=== PATIENT | female | born 1940 | race Caucasian/White ===

== ENCOUNTER 2022-04-02 09:51 | Emergency (ER) | payer MEDICARE, SELFPAY ==
[2022-04-02 10:07] VITALS: BP 145/75; PULSE 86; RESP 18; TEMP 36; O2SAT 97; BMI 30.5
--- NOTE | 2022-04-02 10:17 | CRLHL7_ITS ---
For Patients: As a result of the Century Cures Act, medical imaging exams and procedure reports are released immediately into your electronic medical record. You may view this report before your referring provider. If you have questions, please contact your health care provider. Indication: Trauma Technique: A total of three views of the left foot were acquired. Comparison: None Findings: Bones: Demineralization. Moderate irregularity of the cuboid. This is probably remote posttraumatic or congenital. Correlate with point tenderness in this area (lateral midfoot just proximal to the base of the left 5th metatarsal). 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 Soft tissues: Unremarkable. Impression: Demineralization and degenerative change. Moderate irregularity of the cuboid. This is probably remote posttraumatic or congenital. Correlate with point tenderness in this area as described in the body of the report. Dictated by Raymundo Fernandez MD @ 04/02/2022 11:08:15 AM (Electronically Signed)
--- NOTE | 2022-04-02 10:17 | CRLHL7_ITS ---
For Patients: As a result of the Century Cures Act, medical imaging exams and procedure reports are released immediately into your electronic medical record. You may view this report before your referring provider. If you have questions, please contact your health care provider. Indication: Trauma Technique: A total of two views of the left knee were acquired. Comparison: April 03, 2020 Findings: Bones: Alignment is normal. No fractures or bone lesions. Demineralization. Joint spaces: Minor degenerative changes. Soft tissues: Small effusion Impression: Demineralization. Minor degenerative changes. Small effusion. No visible acute fracture, dislocation or destructive process. Dictated by Raymundo Fernandez MD @ 04/02/2022 11:00:16 AM (Electronically Signed)
--- NOTE | 2022-04-02 10:18 | ED.GENADULT ---
HPI - General Adult General Time Seen by Provider: 10:19 Date Seen: 04/02/22 Chief complaint: Extremity Pain/Injury, Lower Stated complaint: fell, hurt left leg Time Seen by Provider: 04/02/22 09:54 Source: patient Mode of arrival: ambulatory Limitations: physical limitation History of Present Illness HPI narrative: Patient is a 81-year-old female who fell on Thursday, she injured her left foot and her left knee. She has no other problems, no other injuries, she simply fell into a furniture implement. She denied dizziness chest pain breathing problem neurologic complaint. Patient reports that her knee ?popped? yesterday when going up stairs and she has had increasing pain since. She knows little redness on the dorsum of her foot on the left. No head neck back pelvis pain. Related Data Home Medications Medication Instructions Recorded Confirmed levothyroxine 75 mcg tablet See Rx Instructions .Route .COMPLEX 04/02/22 04/02/22 Allergies Allergy/AdvReac Type Severity Reaction Status Date / Time No Known Drug Allergies Allergy Verified 04/02/22 10:12 Review of Systems Status of ROS: Reports: 6 or more systems reviewed and unremarkable except as noted in History and below PFSH PFS Social History Smoking Status: Former smoker What tobacco products do you use: cigarettes Do you use any of these nicotine containing products: None Second hand tobacco smoke exposure: No How often do you have a drink containing alcohol: never How often do you have six or more drinks on one occasion: Never AUDIT-C Alcohol total score: 0 Non-prescribed substance use: denies use Exam Narrative: Exam Narrative: Objective: In general patient apparent distress Alert or x3 Denies head or neck pain, no back pain Lower extremity on the left shows fairly full range of motion left knee, no effusion, no medial lateral joint line tenderness. She does report pain with full flexion extension Left foot shows some tenderness over the distal 2nd 3rd metatarsal, no open wounds, mild soft tissue swelling on the dorsum of the foot distal CMS is intact Neurologic is nonfocal upper lower extremities Pelvis no tenderness Const: Vital Signs, click to edit/add: Vital Signs - 24 hr 04/02/22 10:07 Temperature 96.8 F L Pulse Rate [Right Pulse Oximeter] 86 Respiratory Rate 18 Blood Pressure [Ri ght Upper Arm] 145/75 H Pulse Oximetry 97 Oxygen Delivery Me thod Room Air Course Vital Signs Vital signs: Initial Vital Signs Temperature 96.8 F L 04/02/22 10:07 Temperature Source Temporal Artery Scan 04/02/22 10:07 Pulse Rate 86 04/02/22 10:07 Respiratory Rate 18 04/02/22 10:07 Blood Pressure 145/75 H 04/02/22 10:07 Blood Pressure Mean 98 04/02/22 10:07 Blood Pressure Position Supine 04/02/22 10:07 Pulse Oximetry 97 04/02/22 10:07 Oxygen Delivery Method 04/02/22 10:07 Vital Signs Temperature 96.8 F L 04/02/22 10:07 Pulse Rate 86 04/02/22 10:07 Respiratory Rate 18 04/02/22 10:07 Blood Pressure 145/75 H 04/02/22 10:07 Pulse Oximetry 97 04/02/22 10:07 Oxygen Delivery Method 04/02/22 10:07 Temperature 96.8 F L 04/02/22 10:07 Pulse Rate 86 04/02/22 10:07 Respiratory Rate 18 04/02/22 10:07 Blood Pressure 145/75 H 04/02/22 10:07 Pulse Oximetry 97 04/02/22 10:07 Oxygen Delivery Method 04/02/22 10:07 Medical Decision Making MDM Narrative Medical decision making narrative: Patient fell injuring her left foot and left knee, will get an x-ray of her knee at this point, an x-ray of her foot. Likely a knee immobilizer, likely Tylenol or ibuprofen for a couple of days and then follow up with primary care. Addendum: The patient's x-ray of her foot in knee look unremarkable my right my read, there is chronic degenerative changes. Would recommend at this point knee immobilizer she can tolerate on the left knee light activity, light weight-bearing, icing to the affected areas, Tylenol Advil as needed for few days and follow up with primary care in 2-3 days for recheck. I suspect she has soft tissue inflammation that should resolve over time but needs a followup. Discharge Plan Discharge Clinical Impression: Acute knee pain, Acute pain of left foot, Fall Patient Disposition: Home, Self-Care Condition: Stable Additional Instructions: Icing 5-10 minutes to the knee into the foot 3 times a day for the next 3-5 days, Advil and Tylenol as needed, follow-up with primary care in 2-3 days. Activity Level: Light activity Discharge Diet: Regular Prescriptions: No Action levothyroxine 75 mcg tablet See Rx Instructions .ROUTE .COMPLEX Label Comments: TAKE 2 TABLETS EVERY M-W-F BEFORE A MEAL-TAKE 1 TAB THE OTHER 4 DAYS Rx Instructions: TAKE 2 TABLETS EVERY M-W-F BEFORE A MEAL-TAKE 1 TAB THE OTHER 4 DAYS; Follow Up/Referrals: Jd Cotter MD [Primary Care Provider] - Stand Alone Forms: [employer] Info Instructions
--- NOTE | 2022-04-02 11:26 | ED.NURSE ---
Pt declined knee immobilizer. Dr Ward aware
== END 2022-04-02 11:27 | disposition home or self-care (01) ==
PROVIDERS: Emergency Provider Family Medicine; PCP Family Medicine
DX: M79.672 Pain in left foot (principal); M25.562 Pain in left knee; W19.XXXA Unspecified fall, initial encounter
CPT/HCPCS: 73560; 73630; 99283; 99284

== ENCOUNTER 2024-08-17 08:45 | Outpatient (CLI) | payer MEDICARE, SELFPAY | END 2024-08-17 08:46 | disposition home or self-care (01) | LOC: RAD 08:46 | PROVIDERS: PCP Student in an Organized Health Care Education/Training Program; Visit Provider Student in an Organized Health Care Education/Training Program | DX: R13.10 Dysphagia, unspecified (principal); K44.9 Diaphragmatic hernia without obstruction or gangrene | CPT/HCPCS: 74221 ==

== ENCOUNTER 2024-12-30 09:33 | Outpatient (CLI) | payer MEDICARE, SELFPAY ==
--- NOTE | 2024-12-30 10:22 | P.ANES_ITS ---
Anesthesia Charges Start Date/Time Anesthesia Start Date: 12/30/24 Anesthesia Start Time: 10:44 Stop Date/Time Anesthesia Stop Date: 12/30/24 Anesthesia Stop Time: 11:03 Summary Extremes of Age - Over 70 or under 1: MDA Coding CPT Codes CPT Codes: ANES UPR GI NDSC PX NOS - 47854 ([id number]) P3 - PATIENT W/SEVERE SYS DISEASE, QK - PROCESSING TECHNOLOGIST 2-4 CNCRNT ANES PROC, QX - BILLBOARD INSTALLER SVC W/ MD MED DIRECTION Additional Codes: Summary - Extremes of Age - Over 70 or under 1: MDA ([id number])
--- NOTE | 2024-12-30 10:22 | W.ANESCHARGE ---
Anesthesia Charges Start Date/Time Anesthesia Start Date: 12/30/24 Anesthesia Start Time: 10:44 Stop Date/Time Anesthesia Stop Date: 12/30/24 Anesthesia Stop Time: 11:03 Summary Extremes of Age - Over 70 or under 1: MDA Coding CPT Codes CPT Codes: ANES UPR GI NDSC PX NOS - 31144 ([id number]) P3 - PATIENT W/SEVERE SYS DISEASE, QK - CONTROLS OPERATOR MOLDED GOODS 2-4 CNCRNT ANES PROC, QX - ON SITE NURSE SVC W/ MD MED DIRECTION Additional Codes: Summary - Extremes of Age - Over 70 or under 1: MDA ([id number])
--- NOTE | 2024-12-30 11:02 | P.ANES_ITS ---
Anesthesia Charges Start Date/Time Anesthesia Start Date: 12/30/24 Anesthesia Start Time: 10:44 Stop Date/Time Anesthesia Stop Date: 12/30/24 Anesthesia Stop Time: 11:03 Coding CPT Codes CPT Codes: ANES UPR GI NDSC PX NOS - 16944 ([id number]) P3 - PATIENT W/SEVERE SYS DISEASE, QK - ALARM INSTALLER 2-4 CNCRNT ANES PROC, QX - MAIL PROCESSING EQUIPMENT MECHANIC SVC W/ MD MED DIRECTION
--- NOTE | 2024-12-30 11:02 | W.ANESCHARGE ---
Anesthesia Charges Start Date/Time Anesthesia Start Date: 12/30/24 Anesthesia Start Time: 10:44 Stop Date/Time Anesthesia Stop Date: 12/30/24 Anesthesia Stop Time: 11:03 Coding CPT Codes CPT Codes: ANES UPR GI NDSC PX NOS - 11247 ([id number]) P3 - PATIENT W/SEVERE SYS DISEASE, QK - BUSINESS CONTINUITY GLOBAL DIRECTOR 2-4 CNCRNT ANES PROC, QX - FRAME BENDER SVC W/ MD MED DIRECTION
== END 2024-12-30 09:34 | disposition home or self-care (01) ==
LOC: OP CLINIC 09:34
PROVIDERS: PCP Student in an Organized Health Care Education/Training Program; Visit Provider Internal Medicine Gastroenterology
DX: R13.10 Dysphagia, unspecified (principal); K21.9 Gastro-esophageal reflux disease without esophagitis; K25.9 Gastric ulcer, unspecified as acute or chronic, without hemorrhage or perforation; K44.9 Diaphragmatic hernia without obstruction or gangrene; K31.89 Other diseases of stomach and duodenum
CPT/HCPCS: 00731; 43239; 88305; 99100; J2704; J3490